=== PATIENT | male | born 1990 | race African-American/Black ===

== ENCOUNTER 2023-08-30 04:06 | Emergency (ER) | payer SELFPAY ==
[~2023-08-30] VITALS: Ht 185.4 cm; Wt 86.0 kg
[2023-08-30 04:09] VITALS: BP 140/100; PULSE 90; RESP 18; TEMP 98.6; O2SAT 95
== END 2023-08-30 06:00 | disposition left against medical advice (07) ==
LOC: ER 04:06
DX: S00.81XA Abrasion of other part of head, initial encounter (principal); S40.811A Abrasion of right upper arm, initial encounter; J45.909 Unspecified asthma, uncomplicated; Y08.89XA Assault by other specified means, initial encounter; Y93.89 Activity, other specified; Y92.89 Other specified places as the place of occurrence of the external cause; Y99.8 Other external cause status
CPT/HCPCS: 99283; Z7610 ×2